=== PATIENT | female | born 1965 | race Caucasian/White ===

== ENCOUNTER 2018-12-22 14:13 | Emergency (ER) | payer MEDICAID ==
[~2018-12-22] VITALS: Ht 154.9 cm; Wt 71.5 kg
[2018-12-22 14:44] LABS: BASOPHILS % 2.4 % (0.0-2.0); HEMATOCRIT. 44.1 % (36.0-48.0); LYMPHOCYTES % 35.9 % (20.0-50.0); MEAN CORPUSCULAR HEMOGLOBIN 28.2 pg (28.0-32.0); MEAN CORPUSCULAR VOLUME 82.8 fL (81.0-99.0); MONOCYTES % 5.9 % (2.0-8.0); NEUTROPHILS % 50.8 % (40.0-76.0); PLATELET 307 x1000/uL (130-400); RED BLOOD CELL COUNT 5.32 mill/uL (4.2-5.4); RED CELL DISTRIBUTION WIDTH 13.3 % (11.6-14.6)
[2018-12-22 14:48] LABS: CHLORIDE 104 mEq/L (98-107)
[2018-12-22 15:05] LABS: CLARITY URINE CLEAR (CLEAR); COLOR URINE YELLOW (YELLOW); KETONES URINE NEGATIVE (NEGATIVE); LEUKOCYTE ESTERASE URINE 1+ (NEGATIVE); NITRITE URINE POSITIVE (NEGATIVE); OCCULT BLOOD URINE 2+ (NEGATIVE); PROTEIN URINE 2+ (NEGATIVE); SPECIFIC GRAVITY URINE 1.025 (1.005-1.030); UROBILINOGEN URINE 0.2 E.U./dL (0.2-1.0)
[2018-12-22 16:59] VITALS: BP 101/57
== END 2018-12-22 17:01 | disposition home or self-care (01) ==
LOC: ER 14:13
DX: G51.0 Bell's palsy (principal); N39.0 Urinary tract infection, site not specified
CPT/HCPCS: 36415; 81003; 82962; 93005; 99284

== ENCOUNTER 2019-04-26 09:46 | Emergency (ER) | payer MEDICAID ==
[~2019-04-26] VITALS: Ht 129.5 cm; Wt 70.3 kg
[2019-04-26] MEDS ORDERED: HYDROCODONE/ACETAMINOPHEN 5/325MG TABLET PO ONE (12:15)
[2019-04-26] MEDS ORDERED: IBUPROFEN 400MG TABLET PO ONE (12:15)
[2019-04-26] MEDS ORDERED: CEFTRIAXONE SODIUM 1 G/VIAL IM ONE (12:15)
[2019-04-26] MEDS ORDERED: LIDOCAINE HCL 1% 20ML VIAL (Pyxis) INJ INFIL ONE (12:15)
[2019-04-26 12:30] VITALS: BP 127/84
== END 2019-04-26 12:47 | disposition home or self-care (01) ==
LOC: ER 09:46
DX: K04.7 Periapical abscess without sinus (principal); E11.9 Type 2 diabetes mellitus without complications
CPT/HCPCS: 96372; 99283; J0696; J3490